=== PATIENT | male | born 1980 | race American Indian/Alaskan Native ===

== ENCOUNTER 2019-06-27 16:11 | Emergency (ER) | payer OTHER ==
[~2019-06-27] VITALS: Ht 175.3 cm; Wt 63.6 kg
[2019-06-27 16:37] VITALS: TEMP 98
[2019-06-27 19:00] VITALS: BP 123/82; PULSE 63
[2019-06-27] MEDS ORDERED: NORCO 325 MG-51 TAB PO (19:30)
== END 2019-06-27 19:52 | disposition home or self-care (01) ==
LOC: COL.ER 16:11
DX: S52.571A Other intraarticular fracture of lower end of right radius, initial encounter for closed fracture (principal); S52.611A Displaced fracture of right ulna styloid process, initial encounter for closed fracture; R40.2412 Glasgow coma scale score 13-15, at arrival to emergency department; V86.99XA Unspecified occupant of other special all-terrain or other off-road motor vehicle injured in nontraffic accident, initial encounter; Y92.830 Public park as the place of occurrence of the external cause
CPT/HCPCS: J1170; J2405; J2704; J3010; J7030; Q4050